=== PATIENT | female | born 1990 | race Caucasian/White ===

== ENCOUNTER 2018-07-11 09:41 | Emergency (ER) | payer BC, MEDICAID ==
[~2018-07-11] VITALS: Ht 175.3 cm; Wt 78.0 kg
[~2018-07-11 09:41] MED LIST: IBUP-1223 PO; OXYC-302 PO; PREN1TAB60 PO; SENN-87 PO
[2018-07-11 10:44] LABS: BASOPHILS # (AUTO) 0.01 x10^3/uL (0-0.1); BASOPHILS % (AUTO) 0 % (0-1); EOSINOPHILS # (AUTO) 0.01 x10^3/uL (0-0.4); EOSINOPHILS % (AUTO) 0 % (1-7); LYMPHOCYTES # (AUTO) 1.19 x10^3/uL (1-3.4); LYMPHOCYTES % (AUTO) 28 % (22-44); MD NO; MEAN CORPUSCULAR HEMOGLOBIN 31.2 pg (27.0-34.8); MEAN CORPUSCULAR HGB CONC 33.8 g/dL (32.4-35.8); MEAN CORPUSCULAR VOLUME 92.4 fL (80-100); MEAN PLATELET VOLUME 7.5 fL (7.4-10.4); MONOCYTES # (AUTO) 0.37 x10^3/uL (0.2-0.8); MONOCYTES % (AUTO) 9 % (2-9); NEUTROPHILS # (AUTO) 2.63 x10^3/uL (1.8-6.8); NEUTROPHILS % (AUTO) 63 % (42-75); PLATELET COUNT 165 x10^3/uL (130-400); RED BLOOD COUNT 4.08 x10^6/uL (3.82-5.3); RED CELL DISTRIBUTION WIDTH 12.1 % (9.6-15.2)
[2018-07-11 10:48] LABS: CULTURE INDICATED? YES; MICROSCOPIC INDICATED
[2018-07-11 10:55] LABS: ANION GAP 4 mmol/L (5-15); CALCIUM 8.4 mg/dL (8.5-10.1); CHLORIDE 105 mmol/L (98-107); CREATININE 0.52 mg/dL (0.55-1.02)
[2018-07-11 12:00] VITALS: BP 114/68
== END 2018-07-11 12:03 | disposition home or self-care (01) ==
LOC: ED 11:12
DX: O26.891 Other specified pregnancy related conditions, first trimester (principal); Z3A.11 11 weeks gestation of pregnancy; R11.0 Nausea; R50.9 Fever, unspecified
CPT/HCPCS: 36415; 76856; 80048; 81001; 82040; 84702; 85025; 87086; 99285

== ENCOUNTER 2019-02-05 11:45 | Inpatient (IN) | payer MEDICAID ==
[~2019-02-05] VITALS: Ht 175.3 cm; Wt 88.1 kg
[~2019-02-05 11:45] MED LIST changes: -SENN-87 PO; +SENN-88 PO
[2019-02-05] MEDS ORDERED: OXYTOCIN 30U/ 0.9% NaCL 500ML 500 ML ONE (12:18)
[2019-02-05] MEDS ORDERED: NEWBORN KIT ONE (12:18)
[2019-02-05] MEDS ORDERED: MISOPROSTOL 200 MCG TABLET ONE (12:18)
[2019-02-05] MEDS ORDERED: LIDOCAINE 1%, 20ML ONE ×2 (12:18→17:37)
[2019-02-05] MEDS ORDERED: D5%-LACTATED RINGERS 1,000 ML IV SCH (12:19)
[2019-02-05] MEDS ORDERED: OXYTOCIN 30U/ 0.9% NaCL 500ML 500 ML IV ONE (12:19)
[2019-02-05] MEDS ORDERED: OXYTOCIN 30U/ 0.9% NaCL 500ML 500 ML IV PRN (12:19)
[2019-02-05] MEDS ORDERED: FENTANYL PF 100 MCG/2ML IV PRN (12:30)
[2019-02-05] MEDS ORDERED: ONDANSETRON 2MG/ML, 2ML IVPush PRN (12:30)
[2019-02-05] MEDS ORDERED: CALCIUM CARBONATE 500 MG TAB.CHEW PO PRN (12:30)
[2019-02-05] MEDS ORDERED: FENTANYL PF 100 MCG/2ML IVPush PRN (12:30)
[2019-02-05] MEDS ORDERED: TERBUTALINE 1 MG/ML, 1ML IVPush PRN (12:30)
[2019-02-05 12:38] VITALS: BP 110/63
[2019-02-05 12:43] LABS: BASOPHILS # (AUTO) 0.01 x10^3/uL (0-0.1); BASOPHILS % (AUTO) 0 % (0-1); EOSINOPHILS # (AUTO) 0.01 x10^3/uL (0-0.4); EOSINOPHILS % (AUTO) 0 % (1-7); LYMPHOCYTES # (AUTO) 1.47 x10^3/uL (1-3.4); LYMPHOCYTES % (AUTO) 22 % (22-44); MD NO; MEAN CORPUSCULAR HEMOGLOBIN 33.1 pg (27.0-34.8); MEAN CORPUSCULAR HGB CONC 33.2 g/dL (32.4-35.8); MEAN CORPUSCULAR VOLUME 99.8 fL (80-100); MEAN PLATELET VOLUME 7.1 fL (7.4-10.4); MONOCYTES # (AUTO) 0.51 x10^3/uL (0.2-0.8); MONOCYTES % (AUTO) 8 % (2-9); NEUTROPHILS % (AUTO) 71 % (42-75); PLATELET COUNT 196 x10^3/uL (130-400); RED BLOOD COUNT 3.65 x10^6/uL (3.82-5.3)
[2019-02-05] MEDS: LACTATED RINGERS 1,000 ML IV SCH ×2 (14:33→16:53)
[2019-02-05] MEDS ORDERED: FENTANYL PF 100 MCG/2ML ONE (16:35)
[2019-02-05] MEDS: OXYTOCIN 30U/ 0.9% NaCL 500ML 500 ML IV SCH (16:45)
[2019-02-05] MEDS ORDERED: OXYTOCIN 10 UNITS/ML, 1ML IM PRN (17:00)
[2019-02-05] MEDS ORDERED: IBUPROFEN 600 MG TABLET PO PRN (17:00)
[2019-02-05] MEDS ORDERED: METHYLERGONOVINE 0.2 MG/ML IM PRN (17:00)
[2019-02-05] MEDS ORDERED: ONDANSETRON 2MG/ML, 2ML IV PRN (17:00)
[2019-02-05] MEDS ORDERED: HYDROcodone/APAP 5/325 TABLET PO PRN ×2 (17:00)
[2019-02-05] MEDS ORDERED: ACETAMINOPHEN 325 MG TABLET PO PRN (17:00)
[2019-02-05] MEDS ORDERED: CARBOPROST TROMETHAMINE 250 MCG/ML, 1ML IM PRN (17:00)
[2019-02-05] MEDS ORDERED: MISOPROSTOL 200 MCG TABLET PR PRN (17:00)
[2019-02-05] MEDS ORDERED: DOCUSATE 100 MG CAPSULE PO PRN (17:00)
[2019-02-05] MEDS ORDERED: BUPIVACAINE 0.25% ONE (17:02)
[2019-02-05] MEDS ORDERED: MISOPROSTOL 200 MCG TABLET PR ONE (18:30)
[2019-02-05 20:30] VITALS: BP 96/62
[2019-02-05 23:16] VITALS: BP 96/54
[2019-02-06 01:20] LABS: BASOPHILS # (AUTO) 0.06 x10^3/uL (0-0.1); BASOPHILS % (AUTO) 1 % (0-1); EOSINOPHILS # (AUTO) 0.01 x10^3/uL (0-0.4); EOSINOPHILS % (AUTO) 0 % (1-7); LYMPHOCYTES # (AUTO) 1.69 x10^3/uL (1-3.4); LYMPHOCYTES % (AUTO) 19 % (22-44); MD NO; MEAN CORPUSCULAR HEMOGLOBIN 32.4 pg (27.0-34.8); MEAN CORPUSCULAR HGB CONC 32.1 g/dL (32.4-35.8); MEAN CORPUSCULAR VOLUME 100.8 fL (80-100); MEAN PLATELET VOLUME 7.6 fL (7.4-10.4); MONOCYTES # (AUTO) 0.58 x10^3/uL (0.2-0.8); MONOCYTES % (AUTO) 6 % (2-9); NEUTROPHILS # (AUTO) 6.78 x10^3/uL (1.8-6.8); NEUTROPHILS % (AUTO) 74 % (42-75); PLATELET COUNT 186 x10^3/uL (130-400); RED BLOOD COUNT 3.61 x10^6/uL (3.82-5.3); RED CELL DISTRIBUTION WIDTH 12.7 % (9.6-15.2)
[2019-02-06] MEDS: OXYTOCIN 30U/ 0.9% NaCL 500ML 500 ML IV SCH ×2 (02:45→12:45)
[2019-02-06 03:38] VITALS: BP 93/63
[2019-02-06] MEDS ORDERED: PRENATAL VIT/IRON/FA 1 EACH TABLET PO SCH (09:00)
[2019-02-06 09:25] VITALS: BP 94/61
[2019-02-06] MEDS ORDERED: IBUP-1222 PO (11:49)
[2019-02-06 12:32] VITALS: BP 101/72
== END 2019-02-06 18:45 | disposition home or self-care (01) | DRG 807 ==
LOC: LDOP 11:45 → LDIP 12:20 → 2NW 19:38
PROVIDERS: ADMIT Obstetrics & Gynecology; ATTEND Obstetrics & Gynecology
PROC: 0HQ9XZZ Repair Perineum Skin, External Approach (ICD-10-PCS; principal; 2019-02-05)
PROC: 10E0XZZ Delivery of Products of Conception, External Approach (ICD-10-PCS; 2019-02-05)
PROC: 0UQMXZZ Repair Vulva, External Approach (ICD-10-PCS; 2019-02-05)
DX: O99.02 Anemia complicating childbirth (principal); Z37.0 Single live birth; D50.9 Iron deficiency anemia, unspecified; O71.82 Other specified trauma to perineum and vulva; O70.0 First degree perineal laceration during delivery; Z3A.41 41 weeks gestation of pregnancy
CPT/HCPCS: 36415; 85025; 86850; 86900; G0378; J3010; J2590; J7120

== ENCOUNTER 2020-04-03 12:36 | Inpatient (IN) | payer MEDICAID ==
[~2020-04-03] VITALS: Ht 172.7 cm; Wt 85.0 kg
[~2020-04-03 12:36] MED LIST changes: +IBUP-1222 PO; +SENN-190 PO; -SENN-88 PO
[2020-04-07] MEDS ORDERED: LACTATED RINGERS 1,000 ML IV SCH (15:17)
[2020-04-07] MEDS ORDERED: OXYTOCIN 30U/ 0.9% NaCL 500ML 500 ML IV ONE (15:17)
[2020-04-07] MEDS ORDERED: MISOPROSTOL 200 MCG TABLET ONE (15:26)
[2020-04-07] MEDS ORDERED: LIDOCAINE 1%, 20ML ONE ×2 (15:26→15:36)
[2020-04-07] MEDS ORDERED: ONDANSETRON 2MG/ML, 2ML IVPush PRN (15:30)
[2020-04-07] MEDS ORDERED: SODIUM CHLORIDE FLUSH 10ML SYR IVF PRN (15:30)
[2020-04-07] MEDS ORDERED: TERBUTALINE 1 MG/ML, 1ML IVPush PRN (15:30)
[2020-04-07] MEDS ORDERED: FENTANYL PF 100 MCG/2ML IVPush PRN (15:30)
[2020-04-07] MEDS ORDERED: FENTANYL PF 100 MCG/2ML IV PRN (15:30)
[2020-04-07] MEDS ORDERED: TERBUTALINE 1 MG/ML, 1ML SQ PRN (15:30)
[2020-04-07] MEDS: OXYTOCIN 30U/ 0.9% NaCL 500ML 500 ML IV SCH (16:08)
[2020-04-07] MEDS ORDERED: OXYTOCIN 30U/ 0.9% NaCL 500ML 500 ML ONE (16:15)
[2020-04-07] MEDS ORDERED: ONDANSETRON 2MG/ML, 2ML IV PRN (16:30)
[2020-04-07] MEDS ORDERED: CARBOPROST TROMETHAMINE 250 MCG/ML, 1ML IM PRN (16:30)
[2020-04-07] MEDS ORDERED: ACETAMINOPHEN 325 MG TABLET PO PRN (16:30)
[2020-04-07] MEDS ORDERED: MISOPROSTOL 200 MCG TABLET PR PRN (16:30)
[2020-04-07] MEDS ORDERED: HYDROcodone/APAP 5/325 TABLET PO PRN (16:30)
[2020-04-07] MEDS ORDERED: SIMETHICONE 80 MG CHEW TAB PO PRN (16:30)
[2020-04-07] MEDS ORDERED: OXYTOCIN 10 UNITS/ML, 1ML IM PRN (16:30)
[2020-04-07] MEDS ORDERED: DOCUSATE 100 MG CAPSULE PO PRN (16:30)
[2020-04-07] MEDS ORDERED: METHYLERGONOVINE 0.2 MG/ML IM PRN (16:30)
[2020-04-07] MEDS ORDERED: IBUPROFEN 600 MG TABLET ONE (16:32)
[2020-04-07] MEDS: IBUPROFEN 600 MG TABLET PO PRN (16:34)
[2020-04-07 17:45] VITALS: BP 97/61
[2020-04-07 20:00] VITALS: BP 98/54
[2020-04-07 23:22] LABS: BASOPHILS # (AUTO) 0.02 x10^3/uL (0-0.1); BASOPHILS % (AUTO) 0 % (0-1); EOSINOPHILS # (AUTO) 0.03 x10^3/uL (0-0.4); EOSINOPHILS % (AUTO) 0 % (1-7); LYMPHOCYTES # (AUTO) 1.69 x10^3/uL (1-3.4); LYMPHOCYTES % (AUTO) 19 % (22-44); MD NO; MEAN CORPUSCULAR HEMOGLOBIN 33.3 pg (27.0-34.8); MEAN CORPUSCULAR HGB CONC 33.3 g/dL (32.4-35.8); MEAN CORPUSCULAR VOLUME 100.1 fL (80-100); MEAN PLATELET VOLUME 7.7 fL (7.4-10.4); MONOCYTES # (AUTO) 0.74 x10^3/uL (0.2-0.8); MONOCYTES % (AUTO) 9 % (2-9); NEUTROPHILS # (AUTO) 6.25 x10^3/uL (1.8-6.8); NEUTROPHILS % (AUTO) 72 % (42-75); PLATELET COUNT 160 x10^3/uL (130-400); RED BLOOD COUNT 3.51 x10^6/uL (3.82-5.3); RED CELL DISTRIBUTION WIDTH 12.1 % (9.6-15.2)
[2020-04-08] VITALS: BP 97/64
[2020-04-08] MEDS: IBUPROFEN 600 MG TABLET PO PRN ×3 (00:10→14:57)
[2020-04-08] MEDS: OXYTOCIN 30U/ 0.9% NaCL 500ML 500 ML IV SCH (02:08)
[2020-04-08 03:50] VITALS: BP 92/57
[2020-04-08 08:45] VITALS: BP 94/60
[2020-04-08] MEDS ORDERED: PRENATAL VIT/IRON/FA 1 EACH TABLET PO SCH (09:00)
[2020-04-08] MEDS: HYDROcodone/APAP 5/325 TABLET PO PRN ×3 (09:17→14:57)
[2020-04-08 12:30] VITALS: BP 100/62
[2020-04-08] MEDS ORDERED: HYDR-3240 PO (14:23)
[2020-04-08] MEDS ORDERED: IBUP-1222 PO (14:23)
[2020-04-08] MEDS ORDERED: SENN-92 PO (14:24)
== END 2020-04-08 15:30 | disposition home or self-care (01) | DRG 807 ==
LOC: LDIP 04-07 15:10 → 2NW 04-07 17:37
PROVIDERS: ADMIT Obstetrics & Gynecology; ATTEND Obstetrics & Gynecology
PROC: 10E0XZZ Delivery of Products of Conception, External Approach (ICD-10-PCS; principal; 2020-04-07)
PROC: 0HQ9XZZ Repair Perineum Skin, External Approach (ICD-10-PCS; 2020-04-07)
DX: O32.1XX0 Maternal care for breech presentation, not applicable or unspecified (principal); Z37.0 Single live birth; Z3A.40 40 weeks gestation of pregnancy; O70.0 First degree perineal laceration during delivery
CPT/HCPCS: 36415; 85025; G0378; J2590; J7120

== ENCOUNTER 2020-04-06 14:02 | Outpatient (CLI) | payer MEDICAID | END 2020-04-06 23:59 | disposition home or self-care (01) | LOC: STAR 14:02 | PROVIDERS: ATTEND Obstetrics & Gynecology | DX: Z01.818 Encounter for other preprocedural examination (principal); Z11.59 Encounter for screening for other viral diseases | CPT/HCPCS: 36415; 87635 ==

== ENCOUNTER 2020-04-07 00:22 | Outpatient (CLI) | payer MEDICAID ==
[~2020-04-07] VITALS: Ht 175.3 cm; Wt 84.1 kg
[2020-04-07 00:30] VITALS: BP 109/71
[2020-04-08] MEDS ORDERED: IBUP-1222 PO (14:23)
[2020-04-08] MEDS ORDERED: HYDR-3240 PO (14:23)
[2020-04-08] MEDS ORDERED: SENN-92 PO (14:24)
== END 2020-04-07 02:34 | disposition home or self-care (01) ==
LOC: LDOP 00:22
PROVIDERS: ATTEND Obstetrics & Gynecology
DX: O62.8 Other abnormalities of forces of labor (principal); Z3A.40 40 weeks gestation of pregnancy
CPT/HCPCS: 59025